=== PATIENT | female | born 1960 | race Caucasian/White ===

== ENCOUNTER 2017-03-11 00:09 | Emergency (ER) | payer BC, OTHER ==
[~2017-03-11] VITALS: Ht 165.1 cm; Wt 57.0 kg
[~2017-03-11 00:09] MED LIST: NORC10TA2 PO; REST15CA PO; XANA2TAB2 PO
[2017-03-11 00:12] VITALS: BP 150/93; PULSE 140; RESP 20; TEMP 98.6; O2SAT 96
[2017-03-11] MEDS ORDERED: ZOLO50TA PO (00:30)
--- NOTE | 2017-03-11 00:40 | PD ---
HPI Chief Complaint: Seizure Time Seen by Provider: 00:25 Travel History International Travel<30 days: No Contact w/Intl Traveler<30days: No Traveled to known affect area: No History of Present Illness HPI This patient reports that she is trying to wean herself off of alcohol and had alcohol withdrawal seizure prior to arrival. Her reports tonic-clonic activity of her arms for a minute. She is now alert and recovered. She reports drinking 18 beers a day but trying to wean herself off. Severity is moderate. No alleviating factors. Duration one day PFSH Past Medical History Arthritis: No Asthma: No Autoimmune Disease: No Blood Disorders: No Anxiety: Yes Depression: Yes Heart Rhythm Problems: No Cancer: No Cardiovascular Problems: No High Cholesterol: No Chemotherapy: No Chest Pain: No Congestive Heart Failure: No COPD: No Cerebrovascular Accident: No Diabetes: No Diminished Hearing: No Endocrine: No GERD: No Glaucoma: No Genitourinary: No Headaches: Yes Hepatitis: Yes (HEP C) Hiatal Hernia: No Hypertension: No Immune Disorder: No Kidney Stones: No Musculoskeletal: Yes Neurologic: Yes Psychiatric: Yes Reproductive: No Respiratory: No Migraines: Yes Myocardial Infarction: No Pancreatitis: Yes Radiation Therapy: No Renal Failure: No Seizures: Yes (HX OF WITHDRAWL, TONIC-CLONIC ACTIVITY) Sickle Cell Disease: No Sleep Apnea: No Thyroid Disease: No Ulcer: No Tetanus Vaccination: < 5 Years Influenza Vaccination: No PNEUMOCCOCAL Vaccine (Year): 2 ?: Not Menopausal: Yes Para: 2 Past Surgical History Abdominal Surgery: Yes (PARTIAL HYSTERECTOMY) AICD: No Appendectomy: No Cardiac Surgery: No Cholecystectomy: No Ear Surgery: No Endocrine Surgery: No Eye Surgery: No Genitourinary Surgery: No Gynecologic Surgery: Yes (PARTIAL HYSTERECTOMY) Hysterectomy: Yes Oral Surgery: Yes (ROOT CANAL) Pacemaker: No Thoracic Surgery: No Other Surgery: Yes Social History Alcohol Use: Yes (APPROX 18/BEER/DAY) Tobacco Use: Yes (APPROX 5/CIG/DAY) Substance Use: No Allergies-Medications (Allergen,Severity, Reaction): Coded Allergies: Penicillin (Verified Allergy, Severe, 03/11/17) Reported Meds & Prescriptions Reported Meds & Active Scripts Active Reported Zoloft (Sertraline HCl) 50 Mg Tab Unknown Dose PO DAILY Review of Systems General / Constitutional: No: Fever Eyes: No: Visual changes HENT: No: Headaches Cardiovascular: No: Chest Pain or Discomfort Respiratory: No: Shortness of Breath Gastrointestinal: Positive: Nausea, Vomiting, No: Abdominal Pain Genitourinary: No: Dysuria Musculoskeletal: No: Pain Skin: No Rash Neurologic: Positive: Seizures, No: Weakness Psychiatric: Positive: Substance Abuse, No: Depression Endocrine: No: Polydipsia Hematologic/Lymphatic: No: Easy Bruising Physical Exam Narrative GENERAL: Well-nourished, well-developed patient in no apparent distress. SKIN: Focused skin assessment reveals no rash and nodules. Skin is Warm and dry. HEAD: Atraumatic. Normocephalic. EYES: Pupils equal and round. No scleral icterus. No injection or drainage. ENT: No nasal bleeding or discharge. Mucous membranes pink and moist. NECK: Trachea midline. No JVD. CARDIOVASCULAR: Regular rate and rhythm. No murmur appreciated. RESPIRATORY: No accessory muscle use. Clear to auscultation. Breath sounds equal bilaterally. GASTROINTESTINAL: Abdomen soft, non-tender, nondistended. Hepatic and splenic margins not palpable. MUSCULOSKELETAL: No obvious deformities. No clubbing. No cyanosis. No edema. NEUROLOGICAL: Awake and alert. No obvious cranial nerve deficits. Motor grossly within normal limits. Normal speech. PSYCHIATRIC: Appropriate mood and affect; insight and judgment poor . Data Data Last Documented VS Vital Signs Date Time Temp Pulse Resp B/P Pulse Ox O2 Delivery O2 Flow Rate FiO2 03/11/17 00:12 98.6 140 20 150/93 96 Room Air Orders Iv Access Insert/Monitor (03/11/17 00:37) Complete Blood Count With Diff (03/11/17 00:37) Basic Metabolic Panel (Bmp) (03/11/17 00:37) Sodium Chlor 0.9% 1000 Ml Inj (Ns 1000 M (03/11/17 00:45) Ondansetron Inj (Zofran Inj) (03/11/17 00:45) Lorazepam Inj (Ativan Inj) (03/11/17 00:45) Alcohol (Ethanol) (03/11/17 00:37) Labs Laboratory Tests Test 03/11/17 00:49 White Blood Count 12.3 TH/MM3 Red Blood Count 4.81 MIL/MM3 Hemoglobin 16.1 GM/DL Hematocrit 46.3 % Mean Corpuscular Volume 96.2 FL Mean Corpuscular Hemoglobin 33.5 PG Mean Corpuscular Hemoglobin 34.8 % Concent Red Cell Distribution Width 15.4 % Platelet Count 220 TH/MM3 Mean Platelet Volume 7.9 FL Neutrophils (%) (Auto) 77.6 % Lymphocytes (%) (Auto) 11.7 % Monocytes (%) (Auto) 10.2 % Eosinophils (%) (Auto) 0.0 % Basophils (%) (Auto) 0.5 % Neutrophils # (Auto) 9.5 TH/MM3 Lymphocytes # (Auto) 1.4 TH/MM3 Monocytes # (Auto) 1.3 TH/MM3 Eosinophils # (Auto) 0.0 TH/MM3 Basophils # (Auto) 0.1 TH/MM3 CBC Comment DIFF FINAL Differential Comment Sodium Level 133 MEQ/L Potassium Level 3.6 MEQ/L Chloride Level 86 MEQ/L Carbon Dioxide Level 21.2 MEQ/L Anion Gap 26 MEQ/L Blood Urea Nitrogen 10 MG/DL Creatinine 1.18 MG/DL Estimat Glomerular Filtration 47 ML/MIN Rate Random Glucose 124 MG/DL Calcium Level 9.4 MG/DL Ethyl Alcohol Level 59 MG/DL [facility] Medical Decision Making Medical Screen Exam Complete: Yes Emergency Medical Condition: Yes Medical Record Reviewed: Yes Differential Diagnosis Alcohol withdrawal, new-onset seizure, tremor Narrative Course I have reviewed the patient's electronic medical record. Has been here multiple times for alcohol related and overdose related issues IV placed I gave her 1 L normal saline IV bolus and IV Zofran and 1 mg IV Ativan CBC is normal Metabolic profile is normal Alcohol level is 59 I observed her for an hour and a half and she remains asymptomatic. No seizure activity. I did prescribe her 9 Librium to use as needed Discussed alcohol rehabilitation issues Diagnosis Primary Impression: Alcohol abuse Additional Impression: History of seizure Additional Instructions: The patient was advised to follow up with their physician and return if they worsen. Recommend [facility] alcohol rehabilitation services The patient was warned about potential sedation for the medications they will receive on prescription. Med/Other Pt SpecificInfo: Prescription(s) given Disposition: 01 DISCHARGE HOME Condition: Stable Mariano Garza MD March 11, 2017 00:40
[2017-03-11] MEDS ORDERED: SODIUM CHLOR 0.9% 1000 ML INJ 1,000 ML IV ONE (00:45)
[2017-03-11] MEDS ORDERED: ONDANSETRON HCL 4 MG/2 ML VIAL IV ONE (00:45)
[2017-03-11] MEDS ORDERED: LORazepam 2 MG/ML VIAL IV PUSH ONE (00:45)
[2017-03-11 00:58] LABS: AUTOMATED NEUTROPHIL # 9.5 TH/MM3 (1.8-7.7); BASOPHIL # 0.1 TH/MM3 (0-0.2); BASOPHIL % 0.5 % (0.0-2.0); HEMATOCRIT 46.3 % (35.0-46.0); HEMO FLAGS DIFF FINAL; LYMPH % 11.7 % (9.0-44.0); LYMPHOCYTE # 1.4 TH/MM3 (1.0-4.8); MEAN CELL VOLUME 96.2 FL (80.0-100.0); MEAN CORPUSCULAR HEMOGLOBIN 33.5 PG (27.0-34.0); MEAN CORPUSCULAR HGB CONC 34.8 % (32.0-36.0); MONO % 10.2 % (0.0-8.0); NEUT % 77.6 % (16.0-70.0); PLATELET COUNT 220 TH/MM3 (150-450); RED BLOOD COUNT 4.81 MIL/MM3 (4.00-5.30); RED CELL DISTRIBUTION WIDTH 15.4 % (11.6-17.2); WHITE BLOOD COUNT 12.3 TH/MM3 (4.0-11.0)
[2017-03-11 01:15] LABS: BICARBONATE 21.2 MEQ/L (21.0-32.0); POTASSIUM 3.6 MEQ/L (3.5-5.1)
[2017-03-11 01:44] VITALS: BP 153/78
--- NOTE | 2017-03-11 08:10 | EKG ---
Date Performed: 03/11/2017 Time Performed: 00:25:01 PTAGE: 56 years EKG: SINUS TACHYCARDIA NONSPECIFIC ST DEPRESSION ABNORMAL RHYTHM ECG PREVIOUS TRACING : 07/07/2016 20.50 Compared to previous tracing, heart rate has increased, non specific ST depression is now present. DOCTOR: Terry Denis Interpretating Date/Time 03/11/2017 08:09:11
== END 2017-03-11 01:59 | disposition home or self-care (01) ==
LOC: NEPE 00:09
DX: F10.10 Alcohol abuse, uncomplicated (principal); R56.9 Unspecified convulsions; F17.210 Nicotine dependence, cigarettes, uncomplicated; Y90.2 Blood alcohol level of 40-59 mg/100 ml
CPT/HCPCS: 80048; 80307; 85025; 93005; 96374; 96375; 99284; J2060; J2405; J7030

== ENCOUNTER 2018-03-08 11:09 | Emergency (ER) | payer OTHER ==
[~2018-03-08] VITALS: Ht 165.1 cm; Wt 55.0 kg
[~2018-03-08 11:09] MED LIST changes: -NORC10TA2 PO; -REST15CA PO; -XANA2TAB2 PO; +ZOLO50TA PO
[2018-03-08 11:15] VITALS: BP 146/87; PULSE 109; RESP 21; TEMP 100; O2SAT 97
[2018-03-08] MEDS ORDERED: SODIUM CHLOR 0.9% 1000 ML INJ 1,000 ML IV ONE (11:30)
--- NOTE | 2018-03-08 11:32 | PD ---
Physical Exam Narrative I, Dr. Irwin, have reviewed the advance practice practitioner's documentation and am in agreement, met with the patient face to face, made the diagnosis, and the medical decision making was done by me. *My assessment and Findings: Patient is a 57 year old female who comes in after a seizure. She is post- ictal on arrival, but starting to improve. She is moving all of her extremities, no focal deficit seen. She has multiple bruises, which she says is from her falling several times over the past few days. Data Data Last Documented VS Vital Signs Date Time Temp Pulse Resp B/P (MAP) Pulse Ox O2 Delivery O2 Flow Rate FiO2 03/08/18 17:52 96 18 141/87 (105) 99 03/08/18 15:00 Room Air 03/08/18 11:15 100.0 Orders Orders Electrocardiogram (03/08/18 11:19) Complete Blood Count With Diff (03/08/18 11:19) Comprehensive Metabolic Panel (03/08/18 11:19) Urinalysis - C+S If Indicated (03/08/18 11:19) Magnesium (Mg) (03/08/18 11:19) Thyroid Stimulating Hormone (03/08/18 11:19) Iv Access Insert/Monitor (03/08/18 11:19) Drug Screen, Random Urine (03/08/18 11:19) Alcohol (Ethanol) (03/08/18 11:19) Salicylates (Aspirin) (03/08/18 11:19) Tylenol (Acetaminophen) (03/08/18 11:19) Ct Brain W/O Iv Contrast(Rout) (03/08/18 ) Sodium Chlor 0.9% 1000 Ml Inj (Ns 1000 M (03/08/18 11:30) Coag Profile (03/08/18 11:23) Lorazepam Inj (Ativan Inj) (03/08/18 11:45) Ct Facial Bones W/O Iv Cont (03/08/18 ) Ed Discharge Order (03/08/18 17:13) Lorazepam Inj (Ativan Inj) (03/08/18 17:15) Clindamycin (Cleocin) (03/08/18 17:15) Discharge Instructions (03/08/18 17:27) ^ Follow Up (03/08/18 17:27) Instruction (03/08/18 17:27) Instruction (03/08/18 17:27) Labs Laboratory Tests Test 03/08/18 11:25 03/08/18 11:30 03/08/18 14:15 White Blood Count 11.1 TH/MM3 Red Blood Count 3.54 MIL/MM3 Hemoglobin 11.7 GM/DL Hematocrit 33.6 % Mean Corpuscular Volume 94.9 FL Mean Corpuscular Hemoglobin 33.2 PG Mean Corpuscular Hemoglobin Concent 35.0 % Red Cell Distribution Width 13.9 % Platelet Count 97 TH/MM3 Mean Platelet Volume 8.2 FL Neutrophils (%) (Auto) 83.9 % Lymphocytes (%) (Auto) 8.6 % Monocytes (%) (Auto) 7.3 % Eosinophils (%) (Auto) 0.0 % Basophils (%) (Auto) 0.2 % Neutrophils # (Auto) 9.3 TH/MM3 Lymphocytes # (Auto) 0.9 TH/MM3 Monocytes # (Auto) 0.8 TH/MM3 Eosinophils # (Auto) 0.0 TH/MM3 Basophils # (Auto) 0.0 TH/MM3 CBC Comment AUTO DIFF Differential Comment AUTO DIFF CONFIRMED Platelet Estimate LOW Platelet Morphology Comment NORMAL Total Protein 7.0 GM/DL Alkaline Phosphatase 99 U/L Total Bilirubin 1.1 MG/DL Anion Gap 17 MEQ/L Estimat Glomerular Filtration Rate 58 ML/MIN Thyroid Stimulating Hormone 3rd Gen 2.490 uIU/ML Salicylates Level LESS THAN 1.7 MG/DL Acetaminophen Level LESS THAN 2.0 MCG/ML Ethyl Alcohol Level LESS THAN 3 MG/DL Prothrombin Time 9.9 SEC Prothromb Time International Ratio 1.0 RATIO Activated Partial Thromboplast Time 26.2 SEC Urine Color YELLOW Urine Turbidity CLEAR Urine pH 6.0 Urine Specific [place] 1.018 Urine Protein 30 mg/dL Urine Glucose (UA) TRACE mg/dL Urine Ketones 80 mg/dL Urine Occult Blood MOD Urine Nitrite NEG Urine Bilirubin NEG Urine Urobilinogen LESS THAN 2.0 MG/DL Urine Leukocyte Esterase LARGE Urine RBC 1 /hpf Urine WBC 6 /hpf Urine Squamous Epithelial Cells 1 /hpf Urine Transitional Epithelial Cells <1 /hpf Urine Mucus FEW /lpf Microscopic Urinalysis Comment CULT NOT INDICATED Urine Opiates Screen NEG Urine Barbiturates Screen NEG Urine Amphetamines Screen NEG Urine Benzodiazepines Screen POS Urine Cocaine Screen NEG Urine Cannabinoids Screen NEG MDM Supervised Visit with MARC: Yes Narrative Course Patient observed in the ED without further seizure activity. She was given Ativan to prevent withdrawal. Scans concerning for mandibular fracture. Cleared by Dr. Pearce to follow up in the office. Discharged with instruction for follow up. Diagnosis Primary Impression: Mandible fracture Qualified Codes: S02.612A - Fracture of condylar process of left mandible, initial encounter for closed fracture Scripts Diclofenac Sodium DR (Diclofenac Sodium DR) 75 Mg Tabdr 75 MG PO BID Y for PAIN SCALE 1 TO 10, #20 TAB 0 Refills Prov: Chrissy Irwin MD 03/08/18 Hydrocodone-Acetaminophen (Hydrocodone-Acetaminophen) 5-325 mg Tab 1 TAB PO Q6H Y for PAIN, #10 TAB 0 Refills Prov: Chrissy Irwin MD 03/08/18 Clindamycin (Clindamycin) 150 Mg Cap 300 MG PO Q8HR for Infection for 10 Days, CAP 0 Refills Prov: Chrissy Irwin MD 03/08/18 Chlordiazepoxide HCl (Chlordiazepoxide HCl) 25 Mg Capsule 1 MG PO Q8HR Y for WITHDRAWAL for 8 Days Prov: Chrissy Irwin MD 03/08/18 Chrissy Irwin MD March 08, 2018 11:32
--- NOTE | 2018-03-08 11:35 | PD ---
HPI Chief Complaint: Seizure Time Seen by Provider: 11:13 Travel History International Travel<30 days: No Contact w/Intl Traveler<30days: No Traveled to known affect area: No History of Present Illness HPI 57yo female presents to ED by [facility] following a seizure witnessed by her boyfriend. The boyfriend described the seizure activity to [facility]AC as a grand mal, lasting about 3mins in duration. According to the pt, she has had one previous seizure about 6 months prior, related to alcohol. She has a significant drinking history, consuming about 6-7 drinks of vodka per day, with her last drink being 5-6 days ago. She also takes Xanax and temazepam on a regular basis with her last dose was a month ago as she ran out of her meds due to losing her insurance. According to the boyfriend, she has been on a "apodaca" the last three weeks due to a in the family. She denies bowel or bladder incontinence, biting her tongue, or vomiting. Pt denies any headaches, blurred vision, pain, lightheadedness, weakness, or numbness. Denies any pain but she does have bruises in multiple areas that appear to be of different stages. Likely from multiple falls. Per report I was given by ambulance apparently patient has been by herself and possibly falling from the intoxications. PFSH Past Medical History Hx Anticoagulant Therapy: No Arthritis: No Asthma: No Autoimmune Disease: No Blood Disorders: No Anxiety: Yes Depression: Yes Heart Rhythm Problems: No Cancer: No Cardiovascular Problems: No High Cholesterol: No Chemotherapy: No Chest Pain: No Congestive Heart Failure: No COPD: No Cerebrovascular Accident: No Diabetes: No Diminished Hearing: No Endocrine: No GERD: No Glaucoma: No Genitourinary: No Headaches: Yes Hepatitis: Yes (HEP C) Hiatal Hernia: No Hypertension: No Immune Disorder: No Kidney Stones: No Musculoskeletal: Yes Neurologic: Yes Psychiatric: Yes Reproductive: No Respiratory: No Migraines: Yes Myocardial Infarction: No Pancreatitis: Yes Radiation Therapy: No Renal Failure: No Seizures: Yes (HX OF WITHDRAWL, TONIC-CLONIC ACTIVITY) Sickle Cell Disease: No Sleep Apnea: No Thyroid Disease: No Ulcer: No PNEUMOCCOCAL Vaccine (Year): 2 Menopausal: Yes Para: 2 Past Surgical History Abdominal Surgery: Yes (PARTIAL HYSTERECTOMY) AICD: No Appendectomy: No Cardiac Surgery: No Cholecystectomy: No Ear Surgery: No Endocrine Surgery: No Eye Surgery: No Genitourinary Surgery: No Gynecologic Surgery: Yes (PARTIAL HYSTERECTOMY) Hysterectomy: Yes Oral Surgery: Yes (ROOT CANAL) Pacemaker: No Thoracic Surgery: No Other Surgery: Yes Social History Alcohol Use: Yes (APPROX 18/BEER/DAY) Tobacco Use: Yes (APPROX 5/CIG/DAY) Substance Use: No Allergies-Medications (Allergen,Severity, Reaction): Coded Allergies: penicillin G (Unverified Allergy, Severe, 03/08/18) Reported Meds & Prescriptions Reported Meds & Active Scripts Active Diclofenac Sodium DR (Diclofenac Sodium) 75 Mg Tabdr 75 Mg PO BID PRN Hydrocodone-Acetaminophen 5-325 mg Tab 1 Tab PO Q6H PRN Clindamycin (Clindamycin HCl) 150 Mg Cap 300 Mg PO Q8HR 10 Days Chlordiazepoxide HCl 25 Mg Capsule 1 Mg PO Q8HR PRN 8 Days Reported Zoloft (Sertraline HCl) 50 Mg Tab Unknown Dose PO DAILY Review of Systems Except as stated in HPI: all other systems reviewed are Neg Physical Exam Narrative GENERAL: SKIN: Warm and dry. HEAD: Atraumatic. Normocephalic. EYES: Pupils equal and round. No scleral icterus. No injection or drainage. ENT: No nasal bleeding or discharge. Mucous membranes pink and moist. Tongue is midline. No uvula deviation. NECK: Trachea midline. No JVD. CARDIOVASCULAR: Regular rate and rhythm. No murmurs, S3, S4. RESPIRATORY: No accessory muscle use. Clear to auscultation. Breath sounds equal bilaterally. GASTROINTESTINAL: Abdomen soft, non-tender, nondistended. Hepatic and splenic margins not palpable. MUSCULOSKELETAL: Extremities without clubbing, cyanosis, or edema. No obvious deformities. Full range of motion of the upper and lower extremities bilaterally. 2+ pulses bilaterally. NEUROLOGICAL: Awake and alert. No obvious cranial nerve deficits. Motor grossly within normal limits. Five out of 5 muscle strength in the arms and legs. Normal speech. PSYCHIATRIC: Appropriate mood and affect; insight and judgment normal. Data Data Last Documented VS Vital Signs Date Time Temp Pulse Resp B/P (MAP) Pulse Ox O2 Delivery O2 Flow Rate FiO2 03/08/18 15:00 78 20 131/80 (97) 94 Room Air 03/08/18 11:15 100.0 Orders Orders Electrocardiogram (03/08/18 11:19) Complete Blood Count With Diff (03/08/18 11:19) Comprehensive Metabolic Panel (03/08/18 11:19) Urinalysis - C+S If Indicated (03/08/18 11:19) Magnesium (Mg) (03/08/18 11:19) Thyroid Stimulating Hormone (03/08/18 11:19) Iv Access Insert/Monitor (03/08/18 11:19) Drug Screen, Random Urine (03/08/18 11:19) Alcohol (Ethanol) (03/08/18 11:19) Salicylates (Aspirin) (03/08/18 11:19) Tylenol (Acetaminophen) (03/08/18 11:19) Ct Brain W/O Iv Contrast(Rout) (03/08/18 ) Sodium Chlor 0.9% 1000 Ml Inj (Ns 1000 M (03/08/18 11:30) Coag Profile (03/08/18 11:23) Lorazepam Inj (Ativan Inj) (03/08/18 11:45) Ct Facial Bones W/O Iv Cont (03/08/18 ) Ed Discharge Order (03/08/18 17:13) Lorazepam Inj (Ativan Inj) (03/08/18 17:15) Clindamycin (Cleocin) (03/08/18 17:15) Labs Laboratory Tests Test 03/08/18 11:25 03/08/18 11:30 03/08/18 14:15 White Blood Count 11.1 TH/MM3 Red Blood Count 3.54 MIL/MM3 Hemoglobin 11.7 GM/DL Hematocrit 33.6 % Mean Corpuscular Volume 94.9 FL Mean Corpuscular Hemoglobin 33.2 PG Mean Corpuscular Hemoglobin Concent 35.0 % Red Cell Distribution Width 13.9 % Platelet Count 97 TH/MM3 Mean Platelet Volume 8.2 FL Neutrophils (%) (Auto) 83.9 % Lymphocytes (%) (Auto) 8.6 % Monocytes (%) (Auto) 7.3 % Eosinophils (%) (Auto) 0.0 % Basophils (%) (Auto) 0.2 % Neutrophils # (Auto) 9.3 TH/MM3 Lymphocytes # (Auto) 0.9 TH/MM3 Monocytes # (Auto) 0.8 TH/MM3 Eosinophils # (Auto) 0.0 TH/MM3 Basophils # (Auto) 0.0 TH/MM3 CBC Comment AUTO DIFF Differential Comment AUTO DIFF CONFIRMED Platelet Estimate LOW Platelet Morphology Comment NORMAL Total Protein 7.0 GM/DL Alkaline Phosphatase 99 U/L Total Bilirubin 1.1 MG/DL Anion Gap 17 MEQ/L Estimat Glomerular Filtration Rate 58 ML/MIN Thyroid Stimulating Hormone 3rd Gen 2.490 uIU/ML Salicylates Level LESS THAN 1.7 MG/DL Acetaminophen Level LESS THAN 2.0 MCG/ML Ethyl Alcohol Level LESS THAN 3 MG/DL Prothrombin Time 9.9 SEC Prothromb Time International Ratio 1.0 RATIO Activated Partial Thromboplast Time 26.2 SEC Urine Color YELLOW Urine Turbidity CLEAR Urine pH 6.0 Urine Specific [place] 1.018 Urine Protein 30 mg/dL Urine Glucose (UA) TRACE mg/dL Urine Ketones 80 mg/dL Urine Occult Blood MOD Urine Nitrite NEG Urine Bilirubin NEG Urine Urobilinogen LESS THAN 2.0 MG/DL Urine Leukocyte Esterase LARGE Urine RBC 1 /hpf Urine WBC 6 /hpf Urine Squamous Epithelial Cells 1 /hpf Urine Transitional Epithelial Cells <1 /hpf Urine Mucus FEW /lpf Microscopic Urinalysis Comment CULT NOT INDICATED Urine Opiates Screen NEG Urine Barbiturates Screen NEG Urine Amphetamines Screen NEG Urine Benzodiazepines Screen POS Urine Cocaine Screen NEG Urine Cannabinoids Screen NEG MDM Medical Decision Making Medical Screen Exam Complete: Yes Emergency Medical Condition: Yes Medical Record Reviewed: Yes Interpretation(s) alcohol less than 3 CBC & BMP Diagram 03/08/18 11:25 Total Protein 7.0, Alkaline Phosphatase 99, Total Bilirubin 1.1 H Last Impressions Maxillofacial CT 03/08/18 0000 Signed Impressions: CONCLUSION: 1. Acute left mandibular condyle fracture. 2. Chronic right maxillary sinus disease.. Head CT 03/08/18 0000 Signed Impressions: CONCLUSION: 1. No acute intracranial abnormality. 2. Concern for possible condylar fracture involving the mandible on the left. Clinical evaluation for left TMJ pain is needed. Differential Diagnosis Alcohol intoxication versus alcohol withdrawal versus seizure versus seizure withdrawal versus overdose versus medication withdrawal Narrative Course 57-year-old female that presents to the ED for evaluation of seizure. Patient was properly examined and was found to have signs and symptoms consistent appears to be likely alcohol withdrawal seizure. Labs and imaging order. Patient was given Ativan. Fluids given. Labs and imaging showed what appears to be left condylar mandibular fracture. Lower alcohol level. Patient was given Ativan by my attending. Patient has had no seizures here. Patient was given fluids with some relief. Patient came back to more normal mental status and she did complain of left calf pain. She states that this is near from a fall she had yesterday. CT of the facial bones was ordered and did show what appears to be acute left condylar mandibular fracture. Case discussed with Dr. Pearce over the phone who recommends that the patient be admitted for possible surgery. Surgeon came at bedside and talk to the patient and decided that at this time this appears to be an older fracture and patient will not require surgery. He wants us to put the patient antibiotics, pain medications and to make sure the patient has help with her alcoholism. Follow-up with PCP. See ED if worsening symptoms. Case discussed with my attending Dr Irwin who evaluated the patient with me and who agrees with plan. Diagnosis Primary Impression: Withdrawal seizures Qualified Codes: F19.230 - Other psychoactive substance dependence with withdrawal, uncomplicated Additional Impressions: Alcohol abuse Mandible fracture Qualified Codes: S02.612A - Fracture of condylar process of left mandible, initial encounter for closed fracture Referrals: Derrick Pearce DMD [facility] Patient Instructions: Narcotic given in the ED, General Instructions Additional Instructions: Take medications as prescribed. Follow-up with PCP. See ED for any worsening symptoms. Do not drink or drive while taking pain medication. Apply ice or heat as needed for pain Med/Other Pt SpecificInfo: Prescription(s) given Scripts Diclofenac Sodium DR (Diclofenac Sodium DR) 75 Mg Tabdr 75 MG PO BID Y for PAIN SCALE 1 TO 10, #20 TAB 0 Refills Prov: Chrissy Irwin MD 03/08/18 Hydrocodone-Acetaminophen (Hydrocodone-Acetaminophen) 5-325 mg Tab 1 TAB PO Q6H Y for PAIN, #10 TAB 0 Refills Prov: Chrissy Irwin MD 03/08/18 Clindamycin (Clindamycin) 150 Mg Cap 300 MG PO Q8HR for Infection for 10 Days, CAP 0 Refills Prov: Chrissy Irwin MD 03/08/18 Chlordiazepoxide HCl (Chlordiazepoxide HCl) 25 Mg Capsule 1 MG PO Q8HR Y for WITHDRAWAL for 8 Days Prov: Chrissy Irwin MD 5/27/18 Disposition: 01 DISCHARGE HOME Condition: Stable Milan Ling March 08, 2018 11:35
[2018-03-08] MEDS ORDERED: LORazepam 2 MG/ML VIAL IV PUSH ONE ×2 (11:45→17:15)
[2018-03-08 11:48] LABS: AUTOMATED NEUTROPHIL # 9.3 TH/MM3 (1.8-7.7); BASOPHIL % 0.2 % (0.0-2.0); HEMATOCRIT 33.6 % (35.0-46.0); HEMOGLOBIN 11.7 GM/DL (11.6-15.3); LYMPH % 8.6 % (9.0-44.0); LYMPHOCYTE # 0.9 TH/MM3 (1.0-4.8); MEAN CELL VOLUME 94.9 FL (80.0-100.0); MEAN CORPUSCULAR HEMOGLOBIN 33.2 PG (27.0-34.0); MEAN PLATELET VOLUME 8.2 FL (7.0-11.0); MONO % 7.3 % (0.0-8.0); MONOCYTE # 0.8 TH/MM3 (0-0.9); NEUT % 83.9 % (16.0-70.0); PLATELET COUNT 97 TH/MM3 (150-450); RED BLOOD COUNT 3.54 MIL/MM3 (4.00-5.30); RED CELL DISTRIBUTION WIDTH 13.9 % (11.6-17.2); WHITE BLOOD COUNT 11.1 TH/MM3 (4.0-11.0)
[2018-03-08 12:00] VITALS: BP 139/74; PULSE 104; RESP 25; O2SAT 96
[2018-03-08 12:10] LABS: PROTHROMBIN TIME - PATIENT 9.9 SEC (9.8-11.6)
[2018-03-08 12:12] LABS: ALBUMIN 3.7 GM/DL (3.4-5.0); ALT (GPT) 52 U/L (10-53); AST (GOT) 86 U/L (15-37); BICARBONATE 25.8 MEQ/L (21.0-32.0); BLOOD UREA NITROGEN 21 MG/DL (7-18); CALCIUM 7.8 MG/DL (8.5-10.1); CHLORIDE 90 MEQ/L (98-107); CREATININE 0.98 MG/DL (0.50-1.00); GLOMERULAR FILTRATION RATE 58 ML/MIN (>89); GLUCOSE,RANDOM 209 MG/DL (74-106); MAGNESIUM 1.8 MG/DL (1.5-2.5); SODIUM (NA) 133 MEQ/L (136-145)
[2018-03-08 12:21] LABS: ACETAMINOPHEN LESS THAN 2.0 MCG/ML (10.0-30.0); ALKALINE PHOSPHATASE 99 U/L (45-117); TOTAL BILIRUBIN ADULT 1.1 MG/DL (0.2-1.0)
[2018-03-08 13:00] VITALS: BP 151/83; PULSE 100; RESP 24; O2SAT 97
--- NOTE | 2018-03-08 13:43 | RADRPT ---
EXAM DATE: 03/08/2018 1:33 PM EDT AGE/SEX: 57 years / Female INDICATIONS: Possible seizure today. CLINICAL DATA: This is the patient's initial encounter. Patient reports that signs and symptoms have been present for 1 day and indicates a pain score of 0/10. MEDICAL/SURGICAL HISTORY: Hepatitis C. None. RADIATION DOSE: 34.55 CTDI (mGy) COMPARISON: . TECHNIQUE: CT of the head without contrast. Using automated exposure control and adjustment of the mA and/or kV according to patient size, radiation dose was kept as low as reasonably achievable to ob tain optimal diagnostic quality images. FINDINGS: Cerebrum: The ventricles are normal for age. No evidence of midline shift, mass lesion, hemorrhage or acute infarction. No extraaxial fluid collections are seen. Posterior Fossa: The cerebellum and brainstem are intact. The 4th ventricle is midline. The cerebe llopontine angle is unremarkable. Extracranial: The visualized portion of the orbits is intact. There is concern for a mandibular cond yle fracture on the left. Skull: The calvaria is intact. No evidence of skull fracture. CONCLUSION: 1. No acute intracranial abnormality. 2. Concern for possible condylar fracture involving the mandible on the left. Clinical evaluation fo r left TMJ pain is needed. Electronically signed by: Sam Nguyen MD 03/08/2018 1:42 PM EDT
[2018-03-08 14:00] VITALS: BP 153/74; PULSE 102; RESP 24; O2SAT 97
[2018-03-08 14:37] LABS: BILIRUBIN, URINE NEG (NEG); BLOOD, URINE MOD (NEG); GLUCOSE,URINE TRACE mg/dL (NEG); KETONE, URINE 80 mg/dL (NEG); MUCUS URINE FEW /lpf (OCC); NITRITE,URINE NEG (NEG); SQUAMOUS EPITHELIAL CELL URINE 1 /hpf (0-5); TRANSITIONAL EPI CELLS, URINE <1 /hpf; URINE COLOR YELLOW (YELLW/STRAW); URINE LEUKOCYTE ESTERASE LARGE (NEG)
[2018-03-08 15:00] VITALS: BP 131/80; PULSE 78; RESP 20; O2SAT 94
--- NOTE | 2018-03-08 16:11 | RADRPT ---
EXAM DATE: 03/08/2018 3:58 PM EDT AGE/SEX: 57 years / Female INDICATIONS: Trauma, anterior jaw pain. CLINICAL DATA: This is the patient's initial encounter. Patient reports that signs and symptoms have been present for 1 day and indicates a pain score of 7/10. MEDICAL/SURGICAL HISTORY: Hepatitis C. None. RADIATION DOSE: 48.18 CTDI (mGy) COMPARISON: CT of the brain 03/08/2018. TECHNIQUE: Contiguous images in the axial and coronal planes were obtained using helical multirow de tector technique. Using automated exposure control and adjustment of the mA and/or kV according to p atient size, radiation dose was kept as low as reasonably achievable to obtain optimal diagnostic elier lity images. FINDINGS: Orbits: The orbital and infraorbital osseous structures are intact. The retroconal structures have a normal configuration. No radiopaque foreign bodies are seen. Nasal Bone: The nasal bone and maxillary spine are intact. Zygomatic Arches: Symmetric without evidence of fracture. Sinuses: The maxillary, ethmoid, and frontal sinuses are intact. Mucosal thickening within the right maxillary sinus. No air-fluid levels seen. Nasal Cavity: The nasal septum is intact and midline. The lacrimal ducts are intact. Soft Tissues: No radiopaque foreign bodies seen. No soft-tissue swelling is seen. Intracranial: No intracranial air seen. Cribriform Plate: Grossly intact. There is an acute fracture involving the left mandibular condyle. The fractures essentially perpendic ular to the long axis of the bone. The condyle is rotated medially. The remaining aspects of the chiara ible are intact. CONCLUSION: 1. Acute left mandibular condyle fracture. 2. Chronic right maxillary sinus disease.. Electronically signed by: Sam Nguyen MD 03/08/2018 4:10 PM EDT
[2018-03-08] MEDS ORDERED: CLINDAMYCIN 150 MG CAP PO ONE (17:15)
[2018-03-08] MEDS ORDERED: CHLO25CA9 PO (17:19)
[2018-03-08] MEDS ORDERED: DICL75TA PO (17:19)
[2018-03-08] MEDS ORDERED: HYDR-3516 PO (17:19)
[2018-03-08] MEDS ORDERED: CLIN150C14 PO (17:19)
--- NOTE | 2018-03-08 17:30 | EKG ---
Date Performed: 03/08/2018 Time Performed: 11:23:30 PTAGE: 57 years EKG: SINUS TACHYCARDIA NONSPECIFIC ST & T-WAVE ABNORMALITY ABNORMAL RHYTHM ECG NO PREVIOUS TRACING DOCTOR: eTrry Denis Interpretating Date/Time 03/08/2018 17:30:28
[2018-03-08 17:52] VITALS: BP 141/87
--- NOTE | 2018-03-08 19:54 | MB ---
cc: Derrick Pearce DMD DATE: 03/08/2018 REASON FOR CONSULTATION: Left condyle fracture. HISTORY OF PRESENT ILLNESS: This is a pleasant 57-year-old lady who apparently fell this afternoon status post a seizure which was witnessed by her boyfriend. The patient said that she was trying to come off her alcohol and trying to stop drinking alcohol because she drinks a lot of vodka per day and she drank several days ago. Now, she is trying to stop this alcoholism and I think she believes that that is how she had the seizure. At this time, I have seen and examined this patient. She is alert, awake and oriented x 3, in no acute distress. Her boyfriend is at bedside. She recently had all of her upper teeth extracted by her dentist, Dr. Tapia, and she wears dentures. She reports some little discomfort on the left posterior molar on the bottom. PAST MEDICAL HISTORY: Alcoholism, anxiety, depression, hepatitis C, pancreatitis, seizures. PAST SURGICAL HISTORY: Hysterectomy. SOCIAL HISTORY: She says she stopped smoking tobacco, but she used to do 5 cigarettes a day. Denies any illicit drug use. Alcoholism, she says ____ 5-6 vodkas when she used to drink per day versus even up to several beers, 10-12 beers a day. ALLERGIES: PENICILLIN. MEDICATIONS: She says she takes Zoloft. PHYSICAL EXAMINATION: Facial nasal bones have been palpated. No gross tenderness noted. No clicking and no crepitus noted on bilateral temporomandibular joints. No gross tenderness to palpation of the facial bones. Positive range of movement of the neck, no tenderness noted. There is some ecchymosis on the anterior chin that is noted. Intraorally edentulous maxilla, recently extracted upper teeth. Mandible, tooth #19, the first molar, appears stable. I do not see anything clinically at this point. Other than that, the tissues are pink and well perfused. Good range of opening. No deviation upon opening and closing. No gross tenderness to clinical exam. IMAGING: CT scan of the facial bones shows a fracture of the left condylar head, medially displaced. Some of it appears to be old. Everything else appears stable at this point. She has got some inflammation on the right maxillary sinus. VITAL SIGNS: Temperature is 100, pulse is 78, ____ 20; blood pressure is 131/80 with oxygen saturation of 94%. LABORATORY DATA: White count is 11.1, with an H and H of 11.7 and 33.6, with platelets of 97. IMPRESSION AND PLAN: This is a 57-year-old female status post seizures, status post possibly consistent with an alcohol withdrawal, with longstanding alcoholism, with a history of now with a left condylar head fracture which is medially displaced. Part of it looks old versus new exacerbation of the same problem. At this time, no surgical intervention needed from oromaxillofacial surgery standpoint. We will advise the patient to keep the upper denture out. Put in a full liquid, pureed, blenderized diet. No full mouth yawning. Ice to the left half of the face, 20 minutes on and 20 minute off x 24 hours, then proceed with warm compress. The patient is to follow up in our office at [facility], Dr. Pearce, . The patient is in agreement with this, including her boyfriend. Derrick Pearce DMD RT/ELENA/ , 05:18 PM , 06:15 PM
[2018-03-10] MEDS ORDERED: DICL75TA PO (12:01)
== END 2018-03-08 18:05 | disposition home or self-care (01) ==
LOC: NEPC 11:09
DX: F19.230 Other psychoactive substance dependence with withdrawal, uncomplicated (principal); S02.612A Fracture of condylar process of left mandible, initial encounter for closed fracture; F17.210 Nicotine dependence, cigarettes, uncomplicated; F32.9 Major depressive disorder, single episode, unspecified; W19.XXXA Unspecified fall, initial encounter; Z79.899 Other long term (current) drug therapy
CPT/HCPCS: 70450; 70486; 80053; 80307; 81001; 83735; 84443; 85025; 85610; 85730; 93005; 96361; 96374; 96376; 99285; J2060; J7030

== ENCOUNTER 2018-04-22 12:26 | Inpatient (IN) ==
[2018-04-22] MEDS ORDERED: Thiamine Inj 100 MG in Sodium Chlor 0.9% Inj 100 ML IV.SIG ONE (16:10)
[2018-04-22 16:44] LABS: Baso % (Auto) 0.1 % (0.0-2.0); Eos % (Auto) 0.2 % (0.0-4.0); Hematocrit 35.9 % (35.0-46.0); Hemoglobin 12.4 gm/dL (11.6-15.3); Lymph # (Auto) 2.1 th/mm3 (1.0-4.8); Lymph % (Auto) 18.2 % (9.0-44.0); Mean Corpuscular HGB Conc 34.5 % (32.0-36.0); Mean Corpuscular Hemoglobin 34.8 pg (27.0-34.0); Mean Corpuscular Volume 100.8 fL (80.0-100.0); Mean Platelet Volume 7.8 fL (7.0-11.0); Mono % (Auto) 8.9 % (0.0-8.0); Neut # (Auto) 8.2 th/mm3 (1.8-7.7); Neut % (Auto) 72.6 % (16.0-70.0); Platelet Count 151 th/mm3 (150-450); Red Blood Count 3.56 mil/mm3 (4.00-5.30); Red Cell Distribution Width 14.9 % (11.6-17.2); White Blood Count 11.3 th/mm3 (4.0-11.0)
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
[2018-04-22 17:17] LABS: Alanine Aminotransferase 61 U/L (10-53); Albumin 3.9 g/dL (3.4-5.0); Alkaline Phosphatase 144 U/L (45-117); Anion Gap 14 meq/L (5-15); Aspartate Aminotransferase 161 U/L (15-37); Blood Urea Nitrogen 25 mg/dL (7-18); Calcium 8.6 mg/dL (8.5-10.1); Carbon Dioxide 22.8 meq/L (21.0-32.0); Chloride 87 meq/L (98-107); Creatine Kinase 4909 U/L (26-192); Glomerular Filtration Rate 45 mL/min (>89); Glucose,Random 91 mg/dL (74-106); Potassium 3.6 meq/L (3.5-5.1); Total Protein 7.6 g/dL (6.4-8.2)
[2018-04-22 17:20] LABS: Alcohol 20 mg/dL (0-5)
[2018-04-22 17:23] LABS: Sodium 124 meq/L (136-145)
--- NOTE | 2018-04-22 17:31 | XR ---
EXAM DATE: 04/22/2018 5:28 PM EDT AGE/SEX: 57 years / Female INDICATIONS: Left sided chest pain. CLINICAL DATA: This is the patient's initial encounter. Patient reports that signs and symptoms have been present for 1 week and indicates a pain score of 10/10. MEDICAL/SURGICAL HISTORY: None. None. COMPARISON: [facility] – [place], CHEST SINGLE AP, 07/08/2016. . FINDINGS: A single AP view of the chest demonstrates the lungs to be symmetrically aerated without evidence of mass, infiltrate or effusion. The cardiomediastinal contours are unremarkable. Old rib fractures on the left CONCLUSION: Negative for an acute process. I don't see an acute displaced rib fracture. Electronically signed by: Miguel Lal MD 04/22/2018 5:30 PM EDT
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
[2018-04-22 17:43] LABS: CKMB Percent 0.3 % (0.0-4.0)
[2018-04-22 17:56] LABS: Bilirubin,Urine Negative (Negative); Clarity,Urine Clear (Clear); Color,Urine Straw (Yellw/Straw); Glucose,Urine (UA) Negative (Negative); Leukocyte Esterase,Urine Negative (Negative); Nitrite,Urine Negative (Negative); Specific Gravity,Urine 1.002 (1.002-1.035)
[2018-04-22 18:01] LABS: Amphetamine Screen,Urine Neg (Neg); Barbiturate Screen,Urine Neg (Neg); Cannabinoid Screen,Urine Neg (Neg); Cocaine Screen,Urine Neg (Neg)
[2018-04-22 18:07] LABS: Opiate Screen,Urine Neg (Neg)
[2018-04-22] MEDS ORDERED: Haloperidol Inj 5 MG/ML Ampul IV.PUSH PRN (18:28)
[2018-04-22] MEDS ORDERED: Bisacodyl 10 MG Supp RECTAL PRN (18:32)
[2018-04-22] MEDS ORDERED: Thiamine Inj 100 MG in Sodium Chlor 0.9% Inj 100 ML IV.SIG SCH (19:00)
--- NOTE | 2018-04-22 19:44 | P.HPCC ---
History of Present Illness Service: Critical Care Medicine Primary Care Physician: No Primary Care Physician Chief Complaint: altered mental status History of Present Illness: 57yF with history of significant etoh use daily presents after her mother has "weaned her off" her etoh. mother states that she has been giving her "only a teaspoon of alcohol on top of her drinks" in an effort to reduce her etoh consumption. She has apparently been doing this for the last 4-5 days. now patient presents with tachycardia, hypertension, tremors, and visual hallucinations. on my examination, patient is too agitated and delirious to participate in a history. she mumbles unintelligibly. ROS unobtainable. Inpatient Certification: I certify that the inpatient services were ordered in accordance with Medicare regulations governing the order. This includes certification that hospital inpatient services are reasonable and necessary and in the case of services not specified as inpatient-only under 42 CFR 419.22(n), that they are appropriately provided as inpatient services in accordance to with the 2-midnight benchmark under 43 CFR 412.3(e) Estimated Total Length of Stay (Days): 3 Plans for Post Hospital Care: Home Review of Systems unobtainable due to mental condition, unobtainable due to mental status PMFSH - History History Provided By: Family Member - Medical / Surgical Hx Neg / Unobtainable Medical Problems Denied: Unable to Obtain - Medical History Medical History: Medical History (Last Reviewed 04/22/18 @ 16:45 by Alethea Cruz MD) Patient denies medical problems - Surgical History Surgical History: Surgical History (Last Reviewed 04/22/18 @ 16:45 by Alethea Cruz MD) No history of previous surgery - Tobacco History Tobacco Use In Past 30 Days: Yes Smoking Status: Current every day smoker Tobacco Type: Cigarettes - Alcohol History How Often Do You Have a Drink Containing Alcohol: 4 or more times a week - Travel History Recent Travel in the [place] Within the Last 8 Weeks: No Recent Travel Out of the Country Within the Last 8 Weeks: No - Immunization History Tetanus Immunization: <5 Years Medications and Allergies Active Medications: Active Medications Al Hydroxide/Mg Hydroxide (Milk Of Sravanthi Torres) 30 ml PO Q12H PRN PRN Reason: Mild Constipation Albuterol (Albuterol Neb (Bhavya)) 2.5 mg NEB Q2HR NEB PRN PRN Reason: SHORTNESS OF BREATH/WHEEZING Bisacodyl (Dulcolax Supp) 10 mg RECTAL DAILY PRN PRN Reason: SEVERE CONSITIPATION Chlorhexidine Gluconate (Chlorhexidine 2% Cloth) 3 pack TOPICAL DAILY@0400 BHAVYA Stop: 04/28/18 03:59 Chlorhexidine Gluconate (Chlorhexidine 2% Cloth) 3 pack TOPICAL DAILY@0400 PRN PRN Reason: Extra cloth needed Stop: 04/28/18 03:59 Diazepam (Valium) 10 mg PO Q8H BHAVYA Enoxaparin Sodium (Lovenox Inj) 40 mg SQ Q24H BHAVYA Flumazenil (Romazecon Inj) 0.2 mg IV.PUSH Q1M PRN PRN Reason: OVERSEDATION Folic Acid (Folic Acid) 1 mg PO DAILY [facility] Stop: 04/27/18 18:44 Haloperidol Lactate (Haldol Inj) 1 mg IV.PUSH Q15M PRN PRN Reason: for severe agitation Potassium Chloride/Dextrose/Sod Cl (D5w/1/2ns + Kcl 20 Meq Inj) 1,000 mls @ 100 mls/hr IV.CONT .Q10H BHAVYA Thiamine HCl 500 mg/ Sodium (Chloride) 255 mls @ 62.5 mls/hr IV.SIG Q8H BHAVYA Stop: 04/24/18 18:59 Thiamine HCl 500 mg/ Sodium (Chloride) 505 mls @ 21 mls/hr IV.SIG Q24H BHAVYA Stop: 04/29/18 18:36 Multivitamins 10 ml/ Folic (Acid 1 mg/ Sodium Chloride) 510.2 mls @ 125 mls/hr IV.SIG DAILY BHAVYA Stop: 04/28/18 08:59 Thiamine HCl 100 mg/ Sodium (Chloride) 101 mls @ 100 mls/hr IV.SIG DAILY BHAVYA Lactulose (Lactulose Liq) 30 ml PO DAILY PRN PRN Reason: SEVERE CONSITIPATION Lorazepam (Ativan) 1 mg PO Q4H PRN PRN Reason: for CIWA 8-10 Lorazepam (Ativan) 2 mg PO Q2H PRN PRN Reason: for CIWA 11-14 Lorazepam (Ativan Inj) 2 mg IV.PUSH Q2H PRN PRN Reason: for CIWA 11-14 Lorazepam (Ativan Inj) 2 mg IV.PUSH Q1H PRN PRN Reason: for CIWA 15-20 Lorazepam (Ativan Inj) 2 mg IV.PUSH Q15M PRN PRN Reason: for CIWA > 20 Lorazepam (Ativan Inj) 1 mg IV.PUSH Q4H PRN PRN Reason: for CIWA 8-10 Multivitamins/Minerals (Theragran-M) 1 tab PO DAILY BHAVYA Stop: 04/28/18 08:59 Ondansetron HCl (Zofran Inj) 4 mg IV.PUSH Q6H PRN PRN Reason: NAUSEA OR VOMITING Senna/Docusate Sodium (Christine-Colace) 1 tab PO BID BHAVYA Sennosides (Senokot) 17.2 mg PO Q12H PRN PRN Reason: Moderate Constipation Sodium Chloride (Ns Flush) 2 ml IV.FLUSH PRN PRN PRN Reason: FLUSH AFTER USING IV ACCESS Sodium Chloride (Ns Flush) 2 ml IV.FLUSH BID BHAVYA Sodium Chloride (Ns Flush) 2 ml IV.FLUSH PRN PRN PRN Reason: FLUSH AFTER USING IV ACCESS Allergies Allergy/AdvReac Type Severity Reaction Status Date / Time penicillin G Allergy Severe Unverified 03/08/18 11:25 Home Medications Medication Instructions Recorded Confirmed Type Unable to Obtain Home Meds 04/22/18 04/22/18 History Results - Labs CBC & Chem 7: 04/22/18 16:30 04/22/18 16:30 Labs: Short CBC 04/22/18 Range/Units 16:30 WBC 11.3 H (4.0-11.0) th/mm3 Hgb 12.4 (11.6-15.3) gm/dL Hct 35.9 (35.0-46.0) % Plt Count 151 (150-450) th/mm3 [facility] 04/22/18 16:30 Sodium 124 L* Potassium 3.6 Chloride 87 L Carbon Dioxide 22.8 BUN 25 H Creatinine 1.23 H Calcium 8.6 Cardiac Enzymes 04/22/18 Range/Units 16:30 Total Creatine Kinase 4909 H (26-192) U/L CK-MB (CK-2) 17.0 H (0.5-3.6) ng/mL Troponin I Less than 0.02 L (0.02-0.05) ng/mL Liver Function 04/22/18 Range/Units 16:30 Total Bilirubin 1.1 H (0.2-1.0) mg/dL AST 161 H (15-37) U/L ALT 61 H (10-53) U/L Alkaline Phosphatase 144 H (45-117) U/L Albumin 3.9 (3.4-5.0) g/dL Urine 04/22/18 Range/Units 17:30 Urine Color Straw (Yellw/Straw) Urine Clarity Clear (Clear) Urine pH 6.0 (5.0-8.5) Ur Specific [place] 1.002 (1.002-1.035) Urine Protein Negative (Neg-Trace) mg/dL Urine Glucose (UA) Negative (Negative) mg/dL - Imaging Impressions Chest X-Ray 04/22/18 16:10 CONCLUSION: Negative for an acute process. I don't see an acute displaced rib fracture. Head CT 04/22/18 16:10 CONCLUSION: 1. Opacification right maxillary sinus. 2. Intracranial contents unremarkable Exam Vital signs: Vital Signs 04/22/18 12:45 04/22/18 16:56 Temperature 37.8 C H 37.4 C Pulse Rate 113 H 105 H Respiratory Rate 18 20 Blood Pressure 124/58 L 110/66 Pulse Oximetry 99 99 Intake & Output 04/22/18 04/22/18 04/23/18 06:59 18:59 06:59 Weight 58.967 kg Narrative: gen: disheveled middle-aged female lying in bed, writhing, acutely altered. heent: nc. at. perrl. mucous membranes dry. neck: no jvd. trachea midline. chest: equal chest rise. room air. cv: tachycardic rate of 128, regular rhythm. sinus. abd: soft, nontender, nondistended. no guarding. extr: significant resting tremor. no peripheral edema. distal pulses 2+. neuro: RASS +2. not oriented to self. vigorously protects airway. purposeful. does not follow commands. Caprini VTE Risk Assessment Caprini VTE Risk Assessment: Moderate/High Risk (score >= 2) Caprini Risk Assessment Model: Point Value = 1 Point Value = 2 Point Value = 3 Point Value = 5 Age 41-60 Minor surgery BMI > 25 kg/m2 Swollen legs Varicose veins or History of unexplained or recurrent spontaneous Oral contraceptives or hormone replacement Sepsis (< 1 month) Serious lung disease, including pneumonia (< 1 month) Abnormal pulmonary function Acute myocardial infarction Congestive heart failure (< 1 month) History of inflammatory bowel disease Medical patient at bed rest Age 61-74 Arthroscopic surgery Major open surgery (> 45 min) Laparoscopic surgery (> 45 min) Malignancy Confined to bed (> 72 hours) Immobilizing plaster cast Central venous access Age >= 75 History of VTE Family history of VTE Factor V Leiden Prothrombin [id number] Lupus anticoagulant Anticardiolipin antibodies Elevated serum homocysteine Heparin-induced thrombocytopenia Other congenital or acquired thrombophilia Stroke (< 1 month) Elective arthroplasty Hip, pelvis, or leg fracture Acute spinal cord injury (< 1 month) Prophylaxis Regimen: Total Risk Factor Score Risk Level Prophylaxis Regimen 0-1 Low Early ambulation 2 Moderate Order ONE of the following: *Sequential Compression Device (SCD) *Heparin 5000 units SQ BID 3-4 Higher Order ONE of the following medications: *Heparin 5000 units SQ TID *Enoxaparin/Lovenox 40 mg SQ daily (WT < 150 kg, CrCl > 30 mL/min) *Enoxaparin/Lovenox 30 mg SQ daily (WT < 150 kg, CrCl > 10-29 mL/min) *Enoxaparin/Lovenox 30 mg SQ BID (WT < 150 kg, CrCl > 30 mL/min) AND/OR *Sequential Compression Device (SCD) 5 or more Highest Order ONE of the following medications: *Heparin 5000 units SQ TID (Preferred with Epidurals) *Enoxaparin/Lovenox 40 mg SQ daily (WT < 150 kg, CrCl > 30 mL/min) *Enoxaparin/Lovenox 30 mg SQ daily (WT < 150 kg, CrCl > 10-29 mL/min) *Enoxaparin/Lovenox 30 mg SQ BID (WT < 150 kg, CrCl > 30 mL/min) AND *Sequential Compression Device (SCD) Assessment and Plan - Assessment and Plan Plan: Assessment: 57yF with severe etoh withdraw, delirium tremens, and symptomatic hyponatremia. Severe etoh withdraw Delirium Tremens Etoh Dependence - CIWA protocol - iv thiamine - iv mvi - d5 1/2 NS ivf - valium 10mg po q8h - prn ativan - telemetry. Symptomatic Hyponatremia - likely hypovolemic hyponatremia - send urine na, osms, serum osms. - 1/2 NS mivf - serial sodiums - goal correction 8 meq/24h. Acute Rhabdomyolysis - serial CK - mivf Acute kidney injury - secondary to hypovolemia - unclear baseline. - mivf - recheck on daily bmp advance diet as tolerated if mental status permits Lovenox SCDs Admit to floor. consult hospitalist service. Code Status: Full Code Discussed Condition With: Patient's mother.
[2018-04-22 20:28] LABS: Sodium 126 meq/L (136-145)
[2018-04-22 20:48] LABS: Creatine Kinase 4978 U/L (26-192)
[2018-04-22 21:01] LABS: CKMB Percent 0.3 % (0.0-4.0); Creatine Kinase MB 15.2 ng/mL (0.5-3.6)
[2018-04-23] MEDS: Folic Acid 1 MG Tablet PO SCH ×2 (01:25→09:16)
[2018-04-23] MEDS: Enoxaparin Inj 40 MG/0.4 ML Syringe SQ SCH (01:26)
[2018-04-23] MEDS: Thiamine Inj 500 MG in Sodium Chlor 0.9% Inj 250 ML IV.SIG SCH ×2 (01:27→04:56)
[2018-04-23] MEDS: Senna/Docusate Sodium 8.6/50 MG Tablet PO SCH ×4 (01:27→22:05)
[2018-04-23] MEDS ORDERED: Chlorhexidine Gluconate 2% 1 Pack (2 Cloths) TOPICAL PRN (04:00)
[2018-04-23 05:06] LABS: Baso % (Auto) 0.1 % (0.0-2.0); Eos % (Auto) 0.3 % (0.0-4.0); Hemoglobin 11.8 gm/dL (11.6-15.3); Lymph # (Auto) 1.5 th/mm3 (1.0-4.8); Lymph % (Auto) 24.7 % (9.0-44.0); Mean Corpuscular HGB Conc 34.7 % (32.0-36.0); Mean Corpuscular Hemoglobin 35.3 pg (27.0-34.0); Mean Corpuscular Volume 101.7 fL (80.0-100.0); Mean Platelet Volume 7.5 fL (7.0-11.0); Mono % (Auto) 16.6 % (0.0-8.0); Neut # (Auto) 3.6 th/mm3 (1.8-7.7); Neut % (Auto) 58.3 % (16.0-70.0); Platelet Count 143 th/mm3 (150-450); Red Blood Count 3.35 mil/mm3 (4.00-5.30); Red Cell Distribution Width 14.9 % (11.6-17.2); White Blood Count 6.1 th/mm3 (4.0-11.0)
[2018-04-23 05:35] LABS: Sodium 132 meq/L (136-145)
[2018-04-23 05:38] LABS: Calcium 8.5 mg/dL (8.5-10.1); Carbon Dioxide 23.4 meq/L (21.0-32.0); Magnesium 2.4 mg/dL (1.5-2.5); Phosphorus 3.3 mg/dL (2.5-4.9); Potassium 3.8 meq/L (3.5-5.1)
[2018-04-23 05:49] LABS: Creatine Kinase 3581 U/L (26-192)
[2018-04-23 06:03] LABS: CKMB Percent 0.3 % (0.0-4.0); Creatine Kinase MB 10.7 ng/mL (0.5-3.6)
[2018-04-23] MEDS ORDERED: Multivitamin Inj 10 ML, Folic Acid Inj 1 MG in Sodium Chlor 0.9% Inj 500 ML IV.SIG SCH (09:00)
--- NOTE | 2018-04-23 09:10 | P.PN ---
Subjective Interval history: in no acute distress. feels better today. still with some hand tremors but she says that overall she's feeling better.she says that she went to bathroom today and was somewhat unsteady. Physical Exam Vital signs: Vital Signs 04/22/18 12:45 04/22/18 16:56 04/22/18 20:00 Temperature 100.0 F H 99.3 F Pulse Rate 113 H 105 H Respiratory Rate 18 20 Blood Pressure 124/58 L 110/66 Pulse Oximetry 99 99 97 04/22/18 22:33 04/23/18 05:59 04/23/18 08:39 Temperature Pulse Rate 102 H 102 H 105 H Respiratory Rate 22 20 20 Blood Pressure 104/80 152/83 H 124/59 L Pulse Oximetry 97 97 99 04/23/18 08:40 Temperature Pulse Rate Respiratory Rate Blood Pressure Pulse Oximetry 99 Intake & Output 04/22/18 04/23/18 04/23/18 18:59 06:59 18:59 Intake Total 101 / 101 Balance 101 / 101 Weight 58.967 kg Intake: IV 101 / 101 Thiamine Inj 100 MG In NS Inj 101 / 101 100 ML @ 100 mls/hr IV.SIG DAILY SANDI Rx#:[id number] - Constitutional no acute distress - Routine Respiratory Exam Present: CTA bilaterally - Routine Cardiovascular Exam Present: RRR - Routine Abdominal Exam Present: soft - Routine Extremities Exam Comments: no pedal edema. - Routine Neurological Exam Present: alert, oriented X3, tremors (hand tremors.) Results - Labs CBC & Chem 7: 04/23/18 04:40 04/23/18 04:40 Laboratory Results - last 24 hr 04/22/18 04/22/18 04/22/18 16:30 16:30 16:30 WBC 11.3 H RBC 3.56 L Hgb 12.4 Hct 35.9 MCV 100.8 H MCH 34.8 H MCHC 34.5 RDW 14.9 Plt Count 151 MPV 7.8 Neut % (Auto) 72.6 H Lymph % (Auto) 18.2 [place] % (Auto) 8.9 H Eos % (Auto) 0.2 Baso % (Auto) 0.1 Neut # (Auto) 8.2 H Lymph # (Auto) 2.1 [place] # (Auto) 1.0 H Eos # (Auto) 0.0 Baso # (Auto) 0.0 WBC Differential . Differential Comment Auto diff final Sodium 124 L* Potassium 3.6 Chloride 87 L Carbon Dioxide 22.8 Anion Gap 14 BUN 25 H Creatinine 1.23 H Estimated GFR 45 L Random Glucose 91 Osmolality Lactic Acid 1.8 Calcium 8.6 Phosphorus Magnesium Total Bilirubin 1.1 H AST 161 H ALT 61 H Alkaline Phosphatase 144 H Ammonia Total Creatine Kinase 4909 H CK-MB (CK-2) 17.0 H CK-MB (CK-2) % 0.3 Troponin I Less than 0.02 L Total Protein 7.6 Albumin 3.9 Urine Color Urine Clarity Urine pH Ur Specific [place] Urine Protein Urine Glucose (UA) Urine Ketones Urine Occult Blood Urine Nitrate Urine Bilirubin Urine Urobilinogen Ur Leukocyte Esterase Urine RBC Urine WBC Micro UA Comment Urine Culture Comments Urine Osmolality Ur Random Sodium Urine Opiates Screen Ur Barbiturates Screen Ur Amphetamines Screen U Benzodiazepines Scrn Urine Cocaine Screen U Cannabinoids Screen Serum Alcohol 20 H 04/22/18 04/22/18 04/22/18 16:30 17:30 17:30 WBC RBC Hgb Hct MCV MCH MCHC RDW Plt Count MPV Neut % (Auto) Lymph % (Auto) [place] % (Auto) Eos % (Auto) Baso % (Auto) Neut # (Auto) Lymph # (Auto) [place] # (Auto) Eos # (Auto) Baso # (Auto) WBC Differential Differential Comment Sodium Potassium Chloride Carbon Dioxide Anion Gap BUN Creatinine Estimated GFR Random Glucose Osmolality Lactic Acid Calcium Phosphorus Magnesium Total Bilirubin AST ALT Alkaline Phosphatase Ammonia 16 Total Creatine Kinase CK-MB (CK-2) CK-MB (CK-2) % Troponin I Total Protein Albumin Urine Color Straw Urine Clarity Clear Urine pH 6.0 Ur Specific [place] 1.002 Urine Protein Negative Urine Glucose (UA) Negative Urine Ketones Trace H Urine Occult Blood Small H Urine Nitrate Negative Urine Bilirubin Negative Urine Urobilinogen Less than 2 Ur Leukocyte Esterase Negative Urine RBC Less than 1 Urine WBC Less than 1 Micro UA Comment Culture not ind Urine Culture Comments Culture not ind Urine Osmolality Ur Random Sodium Urine Opiates Screen Neg Ur Barbiturates Screen Neg Ur Amphetamines Screen Neg U Benzodiazepines Scrn Neg Urine Cocaine Screen Neg U Cannabinoids Screen Neg Serum Alcohol 04/22/18 04/22/18 04/22/18 17:30 17:30 19:35 WBC RBC Hgb Hct MCV MCH MCHC RDW Plt Count MPV Neut % (Auto) Lymph % (Auto) [place] % (Auto) Eos % (Auto) Baso % (Auto) Neut # (Auto) Lymph # (Auto) [place] # (Auto) Eos # (Auto) Baso # (Auto) WBC Differential Differential Comment Sodium Potassium Chloride Carbon Dioxide Anion Gap BUN Creatinine Estimated GFR Random Glucose Osmolality 273 L Lactic Acid Calcium Phosphorus Magnesium Total Bilirubin AST ALT Alkaline Phosphatase Ammonia Total Creatine Kinase CK-MB (CK-2) CK-MB (CK-2) % Troponin I Total Protein Albumin Urine Color Urine Clarity Urine pH Ur Specific [place] Urine Protein Urine Glucose (UA) Urine Ketones Urine Occult Blood Urine Nitrate Urine Bilirubin Urine Urobilinogen Ur Leukocyte Esterase Urine RBC Urine WBC Micro UA Comment Urine Culture Comments Urine Osmolality 120 L Ur Random Sodium 10 Urine Opiates Screen Ur Barbiturates Screen Ur Amphetamines Screen U Benzodiazepines Scrn Urine Cocaine Screen U Cannabinoids Screen Serum Alcohol 04/22/18 04/23/18 04/23/18 19:35 04:40 04:40 WBC 6.1 RBC 3.35 L Hgb 11.8 Hct 34.0 L MCV 101.7 H MCH 35.3 H MCHC 34.7 RDW 14.9 Plt Count 143 L MPV 7.5 Neut % (Auto) 58.3 Lymph % (Auto) 24.7 [place] % (Auto) 16.6 H Eos % (Auto) 0.3 Baso % (Auto) 0.1 Neut # (Auto) 3.6 Lymph # (Auto) 1.5 [place] # (Auto) 1.0 H Eos # (Auto) 0.0 Baso # (Auto) 0.0 WBC Differential . Differential Comment Auto diff final Sodium 126 L 132 L Potassium Chloride Carbon Dioxide Anion Gap BUN Creatinine Estimated GFR Random Glucose Osmolality Lactic Acid Calcium Phosphorus Magnesium Total Bilirubin AST ALT Alkaline Phosphatase Ammonia Total Creatine Kinase 4978 H 3581 H CK-MB (CK-2) 15.2 H 10.7 H CK-MB (CK-2) % 0.3 0.3 Troponin I Less than 0.02 L Less than 0.02 L Total Protein Albumin Urine Color Urine Clarity Urine pH Ur Specific [place] Urine Protein Urine Glucose (UA) Urine Ketones Urine Occult Blood Urine Nitrate Urine Bilirubin Urine Urobilinogen Ur Leukocyte Esterase Urine RBC Urine WBC Micro UA Comment Urine Culture Comments Urine Osmolality Ur Random Sodium Urine Opiates Screen Ur Barbiturates Screen Ur Amphetamines Screen U Benzodiazepines Scrn Urine Cocaine Screen U Cannabinoids Screen Serum Alcohol 04/23/18 04:40 WBC RBC Hgb Hct MCV MCH MCHC RDW Plt Count MPV Neut % (Auto) Lymph % (Auto) [place] % (Auto) Eos % (Auto) Baso % (Auto) Neut # (Auto) Lymph # (Auto) [place] # (Auto) Eos # (Auto) Baso # (Auto) WBC Differential Differential Comment Sodium 131 L Potassium 3.8 Chloride 95 L D Carbon Dioxide 23.4 Anion Gap 13 BUN 25 H Creatinine 0.99 Estimated GFR 58 L Random Glucose 79 Osmolality Lactic Acid Calcium 8.5 Phosphorus 3.3 Magnesium 2.4 Total Bilirubin AST ALT Alkaline Phosphatase Ammonia Total Creatine Kinase CK-MB (CK-2) CK-MB (CK-2) % Troponin I Total Protein Albumin Urine Color Urine Clarity Urine pH Ur Specific [place] Urine Protein Urine Glucose (UA) Urine Ketones Urine Occult Blood Urine Nitrate Urine Bilirubin Urine Urobilinogen Ur Leukocyte Esterase Urine RBC Urine WBC Micro UA Comment Urine Culture Comments Urine Osmolality Ur Random Sodium Urine Opiates Screen Ur Barbiturates Screen Ur Amphetamines Screen U Benzodiazepines Scrn Urine Cocaine Screen U Cannabinoids Screen Serum Alcohol - Imaging Impressions Chest X-Ray 04/22/18 16:10 CONCLUSION: Negative for an acute process. I don't see an acute displaced rib fracture. Head CT 04/22/18 16:10 CONCLUSION: 1. Opacification right maxillary sinus. 2. Intracranial contents unremarkable Assessment and Plan - Assessment (1) Delirium tremens Code(s): F10.231 - Alcohol dependence with withdrawal delirium Status: Acute Plan: has much improved- continue with Valium and CIWA protocol- continue vitamins- consult PT- advised to stop drinking. (2) Hyponatremia Code(s): E87.1 - Hypo-osmolality and hyponatremia Status: Acute Plan: has much improved- continue IV fluid and monitor. (3) Rhabdomyolysis Code(s): M62.82 - Rhabdomyolysis Status: Acute Plan: improving- continue IV fluid- monitor the CPK level. (4) JOANN (acute kidney injury) Code(s): N17.9 - Acute kidney failure, unspecified Status: Acute Plan: improved on IV fluid. (5) Elevated LFTs Code(s): R94.5 - Abnormal results of liver function studies Status: Chronic Plan: due to alcohol.will monitor. - Plan Discharge Planning: dc planning within the next 24-48 hrs if continues to improve- pending PT evaluation. d/w the RN.
[2018-04-23] MEDS: KCL 20 mEq/D5W/NaCl 0.45% Inj 1,000 ML IV.CONT SCH ×3 (09:16→18:01)
[2018-04-23] MEDS: Multivitamin/Minerals Therapeutic Tablet PO SCH (09:16)
--- NOTE | 2018-04-23 13:30 | ECG ---
Date Performed: 04/22/2018 Time Performed: 16:20:25 PTAGE: 57 years EKG: SINUS TACHYCARDIA POSSIBLE LEFT ATRIAL ENLARGEMENT ABNORMAL RHYTHM ECG Diffuse nonspecific ST-T wave changes, but largely unchanged from prior tracing PREVIOUS TRACING : 03/08/2018 11.23 DOCTOR: Marcos Leal Interpretating Date/Time 04/23/2018 13:23:04
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
[2018-04-23] MEDS: QUEtiapine 25 MG Tablet PO SCH ×2 (16:21→20:43)
[2018-04-24] MEDS: KCL 20 mEq/D5W/NaCl 0.45% Inj 1,000 ML IV.CONT SCH ×3 (00:40→00:42)
[2018-04-24] MEDS: Enoxaparin Inj 40 MG/0.4 ML Syringe SQ SCH (02:25)
[2018-04-24] MEDS: Chlorhexidine Gluconate 2% 1 Pack (2 Cloths) TOPICAL SCH ×2 (02:26→04:08)
[2018-04-24] MEDS: LORazepam 1 MG Tablet PO PRN ×2 (05:45→11:42)
[2018-04-24] MEDS: QUEtiapine 25 MG Tablet PO SCH ×2 (08:29→20:31)
[2018-04-24] MEDS: Multivitamin/Minerals Therapeutic Tablet PO SCH (08:29)
[2018-04-24] MEDS: Folic Acid 1 MG Tablet PO SCH (08:29)
[2018-04-24] MEDS: Senna/Docusate Sodium 8.6/50 MG Tablet PO SCH (08:30)
--- NOTE | 2018-04-24 10:15 | P.PN ---
Subjective Interval history: Follow-up alcohol intoxication and withdrawal/rhabdomyolysis April 24, 2018-patient seen and examined, patient alert and oriented 3. No acute event overnight. CK and BMP pending. Physical Exam Vital signs: Vital Signs 04/23/18 12:00 04/23/18 13:02 04/23/18 15:00 Temperature 98.6 F Pulse Rate 100 H Respiratory Rate 17 20 Blood Pressure 148/69 H 139/79 94/57 L Pulse Oximetry 94 L 96 04/23/18 19:00 04/23/18 20:00 04/24/18 00:00 Temperature 98.5 F 98.3 F 98.3 F Pulse Rate 84 91 H 96 H Respiratory Rate 18 18 18 Blood Pressure 92/54 L 94/51 L 94/51 L Pulse Oximetry 98 96 96 04/24/18 03:00 04/24/18 04:00 04/24/18 05:40 Temperature 98.5 F Pulse Rate 92 H 84 Respiratory Rate 18 Blood Pressure 99/59 L 98/62 L Pulse Oximetry 96 04/24/18 08:00 Temperature 98.7 F Pulse Rate 86 Respiratory Rate 20 Blood Pressure 97/57 L Pulse Oximetry 99 Intake & Output 04/23/18 04/24/18 04/24/18 18:59 06:59 18:59 Intake Total 2341 / 2341 2120 / 2120 Output Total 300 / 300 Balance 2341 / 2341 1820 / 1820 Weight 56.3 kg Intake: IV 2100 D5W/1/2NS + KCL 20 mEq Inj 1, 1999 000 ML @ 100 mls/hr IV.CONT . Q10H [facility] Rx#:[id number] Thiamine Inj 100 MG In NS Inj 101 / 101 100 ML @ 100 mls/hr IV.SIG DAILY [facility] Rx#:[id number] Oral 240 / 240 120 / 120 Output: Urine 300 / 300 Other: # Voids 1 2 # Incontinent Voids 1 Narrative: GENERAL: NAD with minimal Hands tremors SKIN: Warm and dry. HEAD: Normocephalic. EYES: No scleral icterus. No injection or drainage. NECK: Supple, trachea midline. No JVD or lymphadenopathy. CARDIOVASCULAR: Regular rate and rhythm without murmurs, gallops, or rubs. RESPIRATORY: Breath sounds equal bilaterally. No accessory muscle use. GASTROINTESTINAL: Abdomen soft, non-tender, nondistended. MUSCULOSKELETAL: No cyanosis, or edema. BACK: Nontender without obvious deformity. No CVA tenderness. Results - Labs CBC & Chem 7: 04/23/18 04:40 04/23/18 04:40 Assessment and Plan - Assessment (1) Delirium tremens Code(s): F10.231 - Alcohol dependence with withdrawal delirium Status: Acute Plan: has much improved- continue with Valium and CIWA protocol- continue vitamins- consult PT- advised to stop drinking. (2) Hyponatremia Code(s): E87.1 - Hypo-osmolality and hyponatremia Status: Acute Plan: has much improved- continue IV fluid and monitor. (3) Rhabdomyolysis Code(s): M62.82 - Rhabdomyolysis Status: Acute Plan: improving- continue IV fluid- monitor the CPK level. (4) JOANN (acute kidney injury) Code(s): N17.9 - Acute kidney failure, unspecified Status: Acute Plan: improved on IV fluid. (5) Elevated LFTs Code(s): R94.5 - Abnormal results of liver function studies Status: Chronic Plan: due to alcohol.will monitor. - Plan 57-year-old female with Severe alcohol withdraw Delirium Tremens Alcohol dependence - CIWA protocol, rally pack and Valium -Appreciate input from psychiatry, and continue with Seroquel 25 mg twice daily Symptomatic Hyponatremia -Secondary to beer potomania Continue with IV fluid hydration Acute Rhabdomyolysis -CT pending this a.m. and continue with IV fluid hydration Acute kidney injury -Resolved with IV fluid hydration
[2018-04-24] MEDS ORDERED: Sod Chloride 0.9% Inj 1,000 ML IV.CONT SCH (10:17)
[2018-04-24 10:25] LABS: Alanine Aminotransferase 41 U/L (10-53); Albumin 3.1 g/dL (3.4-5.0); Alkaline Phosphatase 115 U/L (45-117); Anion Gap 8 meq/L (5-15); Aspartate Aminotransferase 63 U/L (15-37); Blood Urea Nitrogen 15 mg/dL (7-18); Calcium 8.5 mg/dL (8.5-10.1); Carbon Dioxide 26.9 meq/L (21.0-32.0); Chloride 102 meq/L (98-107); Creatine Kinase 1287 U/L (26-192); Glomerular Filtration Rate 85 mL/min (>89); Glucose,Random 103 mg/dL (74-106); Potassium 3.6 meq/L (3.5-5.1); Sodium 137 meq/L (136-145); Total Protein 6.4 g/dL (6.4-8.2)
[2018-04-24 10:43] LABS: CKMB Percent 0.2 % (0.0-4.0); Creatine Kinase MB 2.4 ng/mL (0.5-3.6)
[2018-04-24] MEDS ORDERED: Thiamine Inj 500 MG in Sodium Chlor 0.9% Inj 500 ML IV.SIG SCH (18:37)
[2018-04-25] MEDS: Chlorhexidine Gluconate 2% 1 Pack (2 Cloths) TOPICAL SCH (06:31)
[2018-04-25 08:01] LABS: Albumin 3.1 g/dL (3.4-5.0); Anion Gap 13 meq/L (5-15); Aspartate Aminotransferase 47 U/L (15-37); Blood Urea Nitrogen 13 mg/dL (7-18); Calcium 9.1 mg/dL (8.5-10.1); Carbon Dioxide 25.4 meq/L (21.0-32.0); Chloride 98 meq/L (98-107); Glomerular Filtration Rate Greater Than 89 mL/min (>89); Glucose,Random 91 mg/dL (74-106); Potassium 3.9 meq/L (3.5-5.1); Sodium 136 meq/L (136-145)
[2018-04-25 08:07] LABS: Alanine Aminotransferase 37 U/L (10-53); Alkaline Phosphatase 116 U/L (45-117); Creatine Kinase 578 U/L (26-192)
[2018-04-25 08:29] LABS: CKMB Percent 0.2 % (0.0-4.0); Creatine Kinase MB 1.2 ng/mL (0.5-3.6)
[2018-04-25] MEDS: Multivitamin/Minerals Therapeutic Tablet PO SCH (09:32)
[2018-04-25] MEDS: Folic Acid 1 MG Tablet PO SCH (09:33)
[2018-04-25] MEDS: QUEtiapine 25 MG Tablet PO SCH (09:33)
--- NOTE | 2018-04-25 11:10 | P.PN ---
Subjective Interval history: Follow-up alcohol intoxication and withdrawal/rhabdomyolysis April 24, 2018-patient seen and examined, patient alert and oriented 3. No acute event overnight. CK and BMP pending. April 25, 2018-patient seen and examined, she did refuse treatment with NS overnight. Stable this morning. CK trending down. Looking for discharge home today. Physical Exam Vital signs: Vital Signs 04/24/18 12:00 04/24/18 12:07 04/24/18 16:00 Temperature 98.1 F 98.4 F Pulse Rate 92 H 92 H 103 H Respiratory Rate 18 18 Blood Pressure 96/58 L 121/57 L Pulse Oximetry 96 95 04/24/18 17:35 04/24/18 20:00 04/24/18 23:00 Temperature 98.7 F 98.6 F Pulse Rate 82 87 Respiratory Rate 16 16 Blood Pressure 100/55 L 107/60 Pulse Oximetry 96 98 98 04/25/18 03:00 04/25/18 04:00 04/25/18 08:00 Temperature 98.9 F 98.9 F Pulse Rate 92 H 94 H 97 H Respiratory Rate 18 18 Blood Pressure 111/57 L 110/68 Pulse Oximetry 96 96 04/25/18 10:42 Temperature Pulse Rate Respiratory Rate Blood Pressure Pulse Oximetry 96 Intake & Output 04/24/18 04/25/18 04/25/18 18:59 06:59 18:59 Intake Total 480 / 480 480 / 480 Balance 480 / 480 480 / 480 Weight 56.3 kg Intake: Oral 480 / 480 480 / 480 Other: # Voids 4 3 # Bowel Movements 1 Narrative: GENERAL: NAD, A&O x3 SKIN: Warm and dry. HEAD: Normocephalic. EYES: No scleral icterus. No injection or drainage. NECK: Supple, trachea midline. No JVD or lymphadenopathy. CARDIOVASCULAR: Regular rate and rhythm without murmurs, gallops, or rubs. RESPIRATORY: Breath sounds equal bilaterally. No accessory muscle use. GASTROINTESTINAL: Abdomen soft, non-tender, nondistended. MUSCULOSKELETAL: No cyanosis, or edema. BACK: Nontender without obvious deformity. No CVA tenderness. Results - Labs CBC & Chem 7: 04/23/18 04:40 04/25/18 05:59 Laboratory Results - last 24 hr 04/24/18 04/25/18 20:39 05:59 Sodium 136 Potassium 3.9 Chloride 98 Carbon Dioxide 25.4 Anion Gap 13 BUN 13 Creatinine 0.64 Estimated GFR Greater than 89 POC Glucose 117 H Random Glucose 91 Calcium 9.1 Total Bilirubin 0.4 AST 47 H ALT 37 Alkaline Phosphatase 116 Total Creatine Kinase 578 H CK-MB (CK-2) 1.2 CK-MB (CK-2) % 0.2 Total Protein 7.0 D Albumin 3.1 L Assessment and Plan - Assessment (1) Delirium tremens Code(s): F10.231 - Alcohol dependence with withdrawal delirium Status: Resolved Plan: has much improved- continue with Valium and CIWA protocol- continue vitamins- consult PT- advised to stop drinking. (2) Hyponatremia Code(s): E87.1 - Hypo-osmolality and hyponatremia Status: Resolved Plan: has much improved- continue IV fluid and monitor. (3) Rhabdomyolysis Code(s): M62.82 - Rhabdomyolysis Status: Acute Plan: improving- continue IV fluid- monitor the CPK level. (4) JOANN (acute kidney injury) Code(s): N17.9 - Acute kidney failure, unspecified Status: Resolved Plan: improved on IV fluid. (5) Elevated LFTs Code(s): R94.5 - Abnormal results of liver function studies Status: Chronic Plan: due to alcohol.will monitor. - Plan 57-year-old female with Severe alcohol withdraw Delirium Tremens Alcohol dependence - CIWA protocol, rally pack and Valium -Appreciate input from psychiatry, and continue with Seroquel 25 mg twice daily Symptomatic Hyponatremia -Secondary to beer potomania Continue with IV fluid hydration Acute Rhabdomyolysis -CK trending down, overnight patient did refuse an NS IVF Acute kidney injury -Resolved with IV fluid hydration
--- NOTE | 2018-04-25 11:15 | P.DS ---
Date of admission: 04/22/18 18:29 Primary care physician: No Primary Care Physician Anticipated date of discharge: 04/25/18 Brief History from admission: 57yF with history of significant etoh use daily presents after her mother has "weaned her off" her etoh. mother states that she has been giving her "only a teaspoon of alcohol on top of her drinks" in an effort to reduce her etoh consumption. She has apparently been doing this for the last 4-5 days. now patient presents with tachycardia, hypertension, tremors, and visual hallucinations. on my examination, patient is too agitated and delirious to participate in a history. she mumbles unintelligibly. ROS unobtainable. DS: Diagnosis - Discharge Diagnosis (1) Delirium tremens Status: Resolved (2) Hyponatremia Status: Resolved (3) Rhabdomyolysis Status: Acute (4) JOANN (acute kidney injury) Status: Resolved (5) Elevated LFTs Status: Chronic DS: Summary Hospital Course: While in hospital, patient was treated for Severe alcohol withdraw Delirium Tremens Alcohol dependence -She was treated with CIWA protocol, rally pack and Valium -Appreciate input from psychiatry, and continue with Seroquel 25 mg twice daily Symptomatic Hyponatremia -Secondary to beer potomania Treated with IV fluid hydration Acute Rhabdomyolysis she received aggressive IV fluid hydration -CK trending down Acute kidney injury -Resolved with IV fluid hydration - Time Spent with Patient Total time spent providing and/or coordinating discharge services: Less than 30 minutes Exam Vital signs: Vital Signs 04/24/18 12:00 04/24/18 12:07 04/24/18 16:00 Temperature 98.1 F 98.4 F Pulse Rate 92 H 92 H 103 H Respiratory Rate 18 18 Blood Pressure 96/58 L 121/57 L Pulse Oximetry 96 95 04/24/18 17:35 04/24/18 20:00 04/24/18 23:00 Temperature 98.7 F 98.6 F Pulse Rate 82 87 Respiratory Rate 16 16 Blood Pressure 100/55 L 107/60 Pulse Oximetry 96 98 98 04/25/18 03:00 04/25/18 04:00 04/25/18 08:00 Temperature 98.9 F 98.9 F Pulse Rate 92 H 94 H 97 H Respiratory Rate 18 18 Blood Pressure 111/57 L 110/68 Pulse Oximetry 96 96 04/25/18 10:42 Temperature Pulse Rate Respiratory Rate Blood Pressure Pulse Oximetry 96 Intake & Output 04/24/18 04/25/18 04/25/18 18:59 06:59 18:59 Intake Total 480 / 480 480 / 480 Balance 480 / 480 480 / 480 Weight 56.3 kg Intake: Oral 480 / 480 480 / 480 Other: # Voids 4 3 # Bowel Movements 1 Narrative: GENERAL: NAD SKIN: Warm and dry. HEAD: Normocephalic. EYES: No scleral icterus. No injection or drainage. NECK: Supple, trachea midline. No JVD or lymphadenopathy. CARDIOVASCULAR: Regular rate and rhythm without murmurs, gallops, or rubs. RESPIRATORY: Breath sounds equal bilaterally. No accessory muscle use. GASTROINTESTINAL: Abdomen soft, non-tender, nondistended. MUSCULOSKELETAL: No cyanosis, or edema. BACK: Nontender without obvious deformity. No CVA tenderness. Results Procedures completed during hospitalization: None Labs on day of discharge: Labs from last 24 hours 04/25/18 04/24/18 05:59 20:39 Sodium 136 Potassium 3.9 Chloride 98 Carbon Dioxide 25.4 Anion Gap 13 BUN 13 Creatinine 0.64 Estimated GFR Greater than 89 POC Glucose 117 H Random Glucose 91 Calcium 9.1 Total Bilirubin 0.4 AST 47 H ALT 37 Alkaline Phosphatase 116 Total Creatine Kinase 578 H CK-MB (CK-2) 1.2 CK-MB (CK-2) % 0.2 Total Protein 7.0 D Albumin 3.1 L - Impressions ITS Impressions Chest X-Ray 04/22/18 16:10 CONCLUSION: Negative for an acute process. I don't see an acute displaced rib fracture. Head CT 04/22/18 16:10 CONCLUSION: 1. Opacification right maxillary sinus. 2. Intracranial contents unremarkable Discharge Plan - Discharge Disposition Patient Disposition: 01 Discharge Home - Discharge Condition Condition: Good - Discharge Order Discharge Orders: Discharge Order (Routine); Ordered 04/25/18 Ordered By: Castro Reyna - Physicians Team Primary Care Provider: Primary Care Physici,No Attending Provider: Castro Reyna Other Providers: Lino Eldridge MD
== END 2018-04-25 13:02 | disposition home or self-care (01) ==
LOC: NEPD 12:26 → NEDA 18:29 → NEDH 22:37 → N04 04-23 09:00
PROVIDERS: ADMIT Hospitalist; ATTEND Hospitalist